=== PATIENT | male | born 1965 | race Caucasian/White ===

== ENCOUNTER 2018-11-10 13:46 | Emergency (ER) | payer MEDICARE ==
--- NOTE | 2018-11-10 14:12 | ER Document Report ---
ED Medical Screen (RME) - General Chief Complaint: Abnormal Lab Results Stated Complaint: ABNORMAL LABS Time Seen by Provider: 11/10/18 14:06 Mode of Arrival: Ambulatory Information source: Patient, Outside Facility Records Notes: Patient presents emergency department with reports of abnormal labs, low platelets. Patient is unable to give history of why he may have low platelets. Caregiver at bedside is unsure what is going on with patient. Patient is currently a patient at [facility] for homicidal ideations. Patient has copy of labs with him. From November 03. Platelets reported as 120 last week (11/03/18) 62 this week (11/09/18). I have greeted and performed a rapid initial assessment of this patient. A comprehensive ED assessment and evaluation of the patient, analysis of test results and completion of the medical decision making process will be conducted by additional ED providers. Dictation of this chart was performed using voice recognition software; therefore, there may be some unintended grammatical errors. TRAVEL OUTSIDE OF THE [place] IN LAST 30 DAYS: No - Related Data Allergies/Adverse Reactions: No Known Allergies Allergy (Verified 11/10/18 13:47) Physical Exam - Vital signs Vitals: Temp Pulse Resp BP Pulse Ox 98.3 F 104 H 16 125/69 97 11/10/18 13:57 11/10/18 13:57 11/10/18 13:57 11/10/18 13:57 11/10/18 13:57 Course - Vital Signs Vital signs: Temp Pulse Resp BP Pulse Ox 98.3 F 104 H 16 125/69 97 11/10/18 13:57 11/10/18 13:57 11/10/18 13:57 11/10/18 13:57 11/10/18 13:57
--- NOTE | 2018-11-10 14:41 | ER Document Report ---
ED General - General Chief Complaint: Abnormal Lab Results Stated Complaint: ABNORMAL LABS Time Seen by Provider: 11/10/18 14:06 Primary Care Provider: NIYAH URIOSTEGUI MD [ACTIVE STAFF] - Follow up as needed Mode of Arrival: Ambulatory Notes: 53-year-old's male transferred to the emergency department from [facility] for a decrease in platelets. Patient had routine blood work done and his platelets were noted to be 62. Patient is at [facility] for homicidal ideations and is currently being treated. Patient denies any hematemesis, hematuria, hematochezia, melena, abdominal pain. No rashes. Denies fever, chills, rhinorrhea, sore throat, cough, chest pain, shortness of breath. TRAVEL OUTSIDE OF THE [place] IN LAST 30 DAYS: No - HPI Onset: Just prior to arrival Onset/Duration: Sudden Quality of pain: No pain Severity: None Pain Level: Denies Associated symptoms: None Exacerbated by: Denies Relieved by: Denies Similar symptoms previously: No Recently seen / treated by doctor: Yes - Related Data Allergies/Adverse Reactions: No Known Allergies Allergy (Verified 11/10/18 13:47) Past Medical History - General Information source: Patient, Outside Facility Records - Social History Smoking Status: Current Every Day Smoker Frequency of alcohol use: None Drug Abuse: Methamphetamine Family History: Reviewed & Not Pertinent Patient has suicidal ideation: No Patient has homicidal ideation: No Pulmonary Medical History: Reports: Hx Asthma, Hx COPD Endocrine Medical History: Reports: Hx Diabetes Mellitus Type 2 - prediabetic Renal/ Medical History: Denies: Hx Peritoneal Dialysis Past Surgical History: Reports: Hx Orthopedic Surgery - neck and back surgery Review of Systems - Review of Systems Constitutional: No symptoms reported EENT: No symptoms reported Cardiovascular: No symptoms reported Respiratory: No symptoms reported Gastrointestinal: No symptoms reported Genitourinary: No symptoms reported Musculoskeletal: No symptoms reported Skin: No symptoms reported Hematologic/Lymphatic: No symptoms reported Neurological/Psychological: No symptoms reported -: Yes All other systems reviewed and negative Physical Exam - Vital signs Vitals: Temp Pulse Resp BP Pulse Ox 98.3 F 104 H 16 125/69 97 11/10/18 13:57 11/10/18 13:57 11/10/18 13:57 11/10/18 13:57 11/10/18 13:57 - Notes Notes: PHYSICAL EXAMINATION: GENERAL: Well-appearing, well-nourished and in no acute distress. HEAD: Atraumatic, normocephalic. EYES: Pupils equal round and reactive to light, extraocular movements intact, sclera anicteric, conjunctiva are normal. ENT: Nares patent, oropharynx clear without exudates. Moist mucous membranes. NECK: Normal range of motion, supple without lymphadenopathy LUNGS: Breath sounds clear to auscultation bilaterally and equal. No wheezes rales or rhonchi. HEART: Regular rate and rhythm without murmurs ABDOMEN: Soft, nontender, nondistended abdomen. No guarding, no rebound. No masses appreciated. Musculoskeletal: Normal range of motion, no pitting or edema. No cyanosis. NEUROLOGICAL: Cranial nerves grossly intact. Normal speech, normal gait. Normal sensory, motor exams PSYCH: Normal mood, normal affect. Homicidal ideations SKIN: Warm, Dry, normal turgor, no rashes or lesions noted. Course - Re-evaluation Re-evalutation: 11/10/18 16:36 Patient denies recent infection. He denies any bleeding. No purpura seen on exam. Labs obtained. Platelets are 56. I spoke with Dr. Uriostegui about the patient's sudden decrease in platelets. She believes that this is likely medic ation induced. I reviewed up-to-date for medications that can cause thrombocytopenia. Patient medication list is significant for drugs that can lead to thrombocytopenia including Depakote, Haldol, Tylenol. As the patient has no active bleeding, I will discharge the patient back to the psychiatric facility. I will list the medications that can be predisposing to the thrombocytopenia. I will instruct the patient to follow-up with hematology/oncology outpatient and asked the psychiatrist to adjust the patient's medications. 11/10/18 16:39 - Vital Signs Vital signs: Temp Pulse Resp BP Pulse Ox 98.3 F 104 H 19 121/77 94 11/10/18 13:57 11/10/18 13:57 11/10/18 17:01 11/10/18 17:01 11/10/18 17:01 - Laboratory Result Diagrams: 11/10/18 14:36 11/10/18 14:36 Laboratory results interpreted by me: 11/10/18 11/10/18 11/10/18 14:36 14:36 14:36 WBC 3.3 L RDW 16.9 H Plt Count 56 L PT 15.8 H Glucose 261 H ALT 15 L Urine Glucose (UA) Urine Ketones Urine Urobilinogen 11/10/18 14:36 WBC RDW Plt Count PT Glucose ALT Urine Glucose (UA) >=500 H Urine Ketones TRACE H Urine Urobilinogen 4.0 H Discharge - Discharge Clinical Impression: Thrombocytopenia due to drugs Condition: Good Disposition: HOME, SELF-CARE Instructions: Thrombocytopenia (OM) Additional Instructions: Your platelet count today is 56. There are medications that can cause the platelet count to decrease. Haldol, Depakote, Tylenol can all cause this. Please follow-up with your psychiatrist to adjust her medications accordingly. I will also provide follow-up with hematology. Return to the emergency department for any signs of bleeding or worsening symptoms. Referrals: NIYAH URIOSTEGUI MD [ACTIVE STAFF] - Follow up as needed
[2018-11-10 14:51] LABS: ABSOLUTE EOSINOPHILS # (AUTO) 0.1 10^3/uL (0.0-0.6); ABSOLUTE MONOCYTES (AUTO) 0.2 10^3/uL (0.1-1.4); ABSOLUTE NEUT (AUTO) 1.9 10^3/uL (1.7-8.2); BASOPHILS % (AUTO) 0.9 % (0-2); EOSINOPHILS % (AUTO) 1.8 % (0-6); HEMATOCRIT 41.4 % (37.9-51.0); LYMPHOCYTES % (AUTO) 30.8 % (13-45); MEAN CORPUSCULAR HEMOGLOBIN 27.4 pg (27.0-33.4); MEAN CORPUSCULAR HGB CONC 33.7 g/dL (32.0-36.0); MEAN CORPUSCULAR VOLUME 81 fl (80-97); MONOCYTES % (AUTO) 7.6 % (3-13); RED CELL DISTRIBUTION WIDTH 16.9 % (11.5-14.0); SEGMENTED NEUTROPHILS % (AUTO) 58.9 % (42-78); TOTAL CELLS COUNTED % (AUTO) 100 %; WHITE BLOOD COUNT 3.3 10^3/uL (4.0-10.5)
[2018-11-10 14:55] LABS: APPEARANCE,URINE CLEAR; BILIRUBIN,URINE NEGATIVE (NEGATIVE); COLOR,URINE YELLOW; GLUCOSE, URINE >=500 mg/dL (NEGATIVE); KETONES,URINE TRACE mg/dL (NEGATIVE); LEUKOCYTE ESTERASE,URINE NEGATIVE (NEGATIVE); NITRITE,URINE NEGATIVE (NEGATIVE); PROTEIN,URINE NEGATIVE (NEGATIVE); URINE SPECIFIC GRAVITY 1.022
[2018-11-10 15:00] LABS: PROTHROMBIN TIME 15.8 SEC (11.4-15.4)
[2018-11-10 15:01] LABS: PARTIAL THROMBOPLASTIN TIME 31.6 SEC (23.5-35.8)
[2018-11-10 15:08] LABS: ALANINE AMINOTRANSFERASE 15 U/L (21-72); ALBUMIN 4.3 g/dL (3.5-5.0); ALKALINE PHOSPHATASE 85 U/L (38-126); ANION GAP 7 (5-19); ASPARTATE AMINO TRANSFERASE 24 U/L (17-59); BILIRUBIN,DIRECT 0.4 mg/dL (0.0-0.4); BILIRUBIN,TOTAL 0.8 mg/dL (0.2-1.3); BLOOD UREA NITROGEN 9 mg/dL (7-20); CALCIUM 9.3 mg/dL (8.4-10.2); CARBON DIOXIDE 27 mmol/L (22-30); CHLORIDE 104 mmol/L (98-107); GLUCOSE 261 mg/dL (75-110); POTASSIUM 4.4 mmol/L (3.6-5.0); SODIUM 138.4 mmol/L (137-145); TOTAL PROTEIN 6.9 g/dL (6.3-8.2)
[2018-11-10 15:33] LABS: PLATELET COUNT 56 10^3/uL (150-450)
[2018-11-10 15:34] LABS: ANISOCYTOSIS 1+; OVALOCYTES 2+; PLATELET COMMENT DECREASED; PLATELET GIANT PRESENT; PLATELET LARGE PRESENT; POIKILOCYTOSIS 2+
[2018-11-10 17:55] VITALS: BP 103/65
== END 2018-11-10 17:55 | disposition home or self-care (01) ==
LOC: ER 13:46
DX: D69.59 Other secondary thrombocytopenia (principal); T50.905A Adverse effect of unspecified drugs, medicaments and biological substances, initial encounter; J44.9 Chronic obstructive pulmonary disease, unspecified; F17.200 Nicotine dependence, unspecified, uncomplicated; Z79.899 Other long term (current) drug therapy
CPT/HCPCS: 36415; 80053; 81001; 83615; 85025; 85610; 85730; 99283